=== PATIENT | male | born 1960 | race African-American/Black ===

== ENCOUNTER 2017-09-27 19:03 | Emergency (ER) | payer MEDICAID, OTHER ==
[~2017-09-27] VITALS: Ht 182.9 cm; Wt 79.5 kg
[2017-09-28 04:00] VITALS: BP 115/75
== END 2017-09-28 04:15 | disposition home or self-care (01) ==
LOC: ER 20:35
DX: R20.2 Paresthesia of skin (principal); G62.9 Polyneuropathy, unspecified; F17.210 Nicotine dependence, cigarettes, uncomplicated; Z88.6 Allergy status to analgesic agent; Z90.49 Acquired absence of other specified parts of digestive tract
CPT/HCPCS: 82962; 99282; Z7610

== ENCOUNTER 2018-03-15 00:31 | Emergency (ER) | payer OTHER ==
[~2018-03-15] VITALS: Ht 180.3 cm; Wt 82.0 kg
[2018-03-15 05:25] VITALS: BP 142/86
== END 2018-03-15 05:25 | disposition home or self-care (01) ==
LOC: ER 00:31
DX: J06.9 Acute upper respiratory infection, unspecified (principal); F16.10 Hallucinogen abuse, uncomplicated; I10 Essential (primary) hypertension; F17.200 Nicotine dependence, unspecified, uncomplicated; Z88.8 Allergy status to other drugs, medicaments and biological substances
CPT/HCPCS: 71045; 99283

== ENCOUNTER 2020-09-02 09:30 | Emergency (ER) | payer OTHER ==
[~2020-09-02] VITALS: Ht 177.8 cm; Wt 81.0 kg
[2020-09-02 10:54] VITALS: BP 185/88
== END 2020-09-02 10:56 | disposition home or self-care (01) ==
LOC: ER 09:49
DX: Z04.1 Encounter for examination and observation following transport accident (principal); G93.40 Encephalopathy, unspecified
CPT/HCPCS: 99283